=== PATIENT | male | born 1990 | race African-American/Black ===

== ENCOUNTER 2025-04-19 06:27 | Emergency (ER) | payer OTHER ==
[~2025-04-19] VITALS: Ht 188 cm; Wt 138.0 kg
[2025-04-19 07:47] LABS: BASO # 0.0 10^3/uL (0.0-0.2); BASO % 0.4 % (0.0-1.0); EOS # 0.1 10^3/uL (0.0-0.5); EOS % 1.0 % (0.0-3.0); LYMPH # 1.1 10^3/uL (1.5-5.0); LYMPH % 16.5 % (24.0-44.0); MONO # 0.6 10^3/uL (0.0-0.8); MONO % 9.1 % (2.0-8.0); NEUTROPHILS # 4.9 10^3/uL (1.5-8.5); NEUTROPHILS % 72.7 % (36.0-66.0); PLATELET COUNT, AUTOMATED 146 10^3/uL (150-450)
[2025-04-19 08:04] LABS: CK-MB VALUE MASS 8.7 NG/ML (<3.6)
[2025-04-19 08:06] LABS: CALCIUM LEVEL 8.7 MG/DL (8.5-10.1); CARBON DIOXIDE LEVEL 25.0 MMOL/L (20-31); CHLORIDE LEVEL 107.0 MMOL/L (98-107); CREATININE FOR GFR 1.18 MG/DL (0.70-1.30); GLOMERULAR FILTRATION RATE 82.0 (>60); POTASSIUM SERUM 4.0 MMOL/L (3.5-5.1); SODIUM LEVEL 142.0 MMOL/L (136-145)
[2025-04-19 08:10] LABS: CPK CREATINE PHOSPHOKINASE 1002.0 U/L (46-171); MB/CK RELATIVE INDEX 0.86 (< OR =4)
[2025-04-19] MEDS: PANTOPRAZOLE 40MG VIAL IV ONE (08:23)
[2025-04-19] MEDS: KETOROLAC 30 MG/ML 1 ML VIAL IV ONE (08:26)
[2025-04-19] MEDS: NS (Normal Saline) 0.9% 1,000 ML IV ONE (08:41)
[2025-04-19 09:14] LABS: CK-MB VALUE MASS 8.7 NG/ML (<3.6)
[2025-04-19 09:19] LABS: CPK CREATINE PHOSPHOKINASE 1017.0 U/L (46-171); MB/CK RELATIVE INDEX 0.85 (< OR =4)
[2025-04-19] MEDS ORDERED: HOME MED LIST COMPLETE! XX SCH (10:25)
[2025-04-19 10:45] VITALS: BP 150/87; O2SAT 100
[2025-04-19 11:03] VITALS: TEMP 98.3
== END 2025-04-19 11:06 | disposition home or self-care (01) ==
LOC: M ED 06:27
DX: R07.9 Chest pain, unspecified (principal); Z82.49 Family history of ischemic heart disease and other diseases of the circulatory system
CPT/HCPCS: 71045; 80048; 82550; 82553; 84484; 85025; 93005; 93041; 94760; 96361; 96374; 96375; 99285; J1885; J2470